=== PATIENT | male | born 1975 | race Caucasian/White ===

== ENCOUNTER 2019-12-31 11:40 | Inpatient (IN) ==
--- NOTE | 2019-12-31 12:18 | Emergency Department Note ---
[facility] [place] Disposition Clinical Impression: Hypokalemia Anemia Qualifiers: Anemia type: unspecified type Qualified Code(s): D64.9 - Anemia, unspecified Disposition: Still a Patient Condition on Discharge: Fair Referrals: Provider,Referral, [Primary Care Provider] - Time of Disposition: 13:03 Medical Decision Making - Medical Records Medical records reviewed: No: I reviewed the patient's medical records. - Zack Inquiry Pt receiving controlled substance: No Vital Signs: 12/31/19 11:45 12/31/19 11:55 Temperature 98.6 F 98.6 F Temperature Source Oral Temporal Artery Scan Pulse Rate [Right Radial] 116 H 116 H Respiratory Rate 18 18 Blood Pressure [Right Arm] 122/68 122/68 Blood Pressure Mean [Right Arm] 86 86 Blood Pressure Source [Right Arm] Automatic Cuff Blood Pressure Position [Right Arm] Sitting 02 Sat by Pulse Oximetry 98 98 Oxygen Delivery Method Room Air Room Air - Lab Data Lab results reviewed: Yes: I reviewed the patient's lab results. Lab Results 12/31/19 12:30: WBC 4.2 L, RBC 2.89 L, Hgb 6.5 L*, Hct 21.5 L*, MCV 75.2 L, MCH 22.6 L, MCHC 30.1 L, RDW 18.1 H, Plt Count 129 L, MPV 11.8 H, Neut % (Auto) 57.5, Lymph % (Auto) 30.8, [place] % (Auto) 7.8, Eos % (Auto) 3.3, Baso % (Auto) 0.5, Neut # (Auto) 2.4, Lymph # (Auto) 1.3, [place] # (Auto) 0.3, Eos # (Auto) 0.1, Baso # (Auto) 0.0 12/31/19 12:30: Sodium 139, Potassium 2.9 L*, Chloride 102, Carbon Dioxide 25, Anion Gap 14.9, BUN 16, Creatinine 0.80, Estimated Creat Clear 140, Estimated GFR 105, Est GFR ( Amer) 127, Glucose 115 H, Calcium 9.0, Total Bilirubin 0.5, AST 58, ALT 28, Alkaline Phosphatase 68, Total Protein 6.4, Albumin 3.5, Globulin 2.9, Albumin/Globulin Ratio 1.2 Result diagrams: 12/31/19 12:30 12/31/19 12:30 Medical Decision Narrative: He was transferred to the ER due to h/h 6.5/21.5, k+=2.9 [facility] [place] HPI - General Stated complaint: legs swelling Time Seen by Provider: 12/31/19 12:18 Mode of Arrival: Ambulatory Source of Information: Patient Limitations: No Limitations Description of Symptoms (Recalled from Triage Doc. by RN): swelling in legs HEENT Symptoms (Recalled from RN notes): No Resp Symptoms (Recalled from RN notes): No Skin Symptoms (Recalled from RN notes): No MS Symptoms (Recalled from RN notes): Yes Functional Status (Recalled from RN notes): leg swelling - History of Present Illness Provider Complaint: He is here with complaints of fatigue and having bilateral lower extremity swelling. He states he has been fatigued for a while now, but over the past 3 to 4 days it has got much worse and he has began to have bilateral leg swelling. The swelling is equal bilaterally. He denies any history of dvt. He does have a history of having similar edema a "few years ago" but he says it went away and he never got a good answer about what caused it. - Related Data Allergies Allergy/AdvReac Type Severity Reaction Status Date / Time hydrocodone [HYDROCODONE] Allergy Unknown ITCHING Unverified 10/08/17 14:01 - Worker's Comp Is this a Worker's Comp case?: No [facility] History - Hepatitis A Screen Drug use history?: Yes High risk sexual behaviors?: No History of sexually transmitted infection?: No Currently employed?: No Childcare worker?: No Do you have indoor plumbing?: Yes Do you have electricity?: Yes Attestation statement:: This patient has been screened for Hepatitis A risk factors. I have reviewed the patient's past medical history: Yes Medical History: Denies:: Cancer, Diabetes Mellitus Type 1, Diabetes Mellitus Type 2, Internal Pacemaker, MRSA Other Surgeries: No: Pacemaker Amputation: No Fractures: Yes - Social History Smoking Status: Current every day smoker Tobacco Type: cigarettes # Packs/Day (cigarettes): 1 Alcohol Intake: never Occupational Status: employed ROS Obtained: Yes All systems reviewed & no additional complaints - Constitutional Constitutional: Denies chills, Denies fever(s) - Eyes Eyes: Denies change in vision - ENT Ears, Nose, Mouth, and Throat: Denies dizziness, Denies otalgia, Denies sore throat - Cardiovascular Cardiovascular: Denies chest pain - Respiratory Respiratory: No chest congestion, No cough - Gastrointestinal Gastrointestingal: Reports: nausea. Denies: abdominal pain, diarrhea, vomiting - Integumentary/Breasts Skin/Breast: Denies rash Physical Exam - General General appearance: alert, in no apparent distress - Head Head exam: atraumatic, normocephalic, normal inspection - Eye Eye exam: Present: normal appearance, PERRL, EOMI - ENT ENT exam: Present: normal exam, normal oropharynx, mucous membranes moist, TM's normal bilaterally, normal external ear exam - Neck Neck exam: Present: normal inspection, full ROM, trachea midline. Absent: meningismus, lymphadenopathy - Chest Chest inspection: Present: normal inspection, symmetric chest wall rise. Absent: tenderness - Respiratory Respiratory exam: Present: normal lung sounds bilaterally. Absent: respiratory distress - Cardiovascular Cardiovascular exam: Present: regular rate, normal rhythm. Absent: JVD - Abdominal Exam Abdominal exam: Present: soft, normal bowel sounds. Absent: distention, tenderness, guarding - Extremities Exam Extremities exam: Present: normal capillary refill, pedal edema. Absent: calf tenderness - Back Exam Back exam: Present: normal inspection. Absent: tenderness - Neurological Exam Neurological exam: Present: alert, oriented X3 - Psychiatric Psychiatric exam: Present: normal affect, normal mood - Skin Skin exam: Present: warm, dry, intact, normal color - Lymphatic Lymphatic Findings: no adenopathy
[2019-12-31 12:37] LABS: Basophils % 0.5 % (0.1-2.0); Eosinophils # 0.1 K/mm3 (0.0-0.4); Eosinophils % 3.3 % (0.1-12.0); Lymphocytes # 1.3 K/mm3 (0.7-4.5); Lymphocytes % 30.8 % (10-50); Mean Corpuscular HGB Conc 30.1 g/dL (31.8-35.4); Mean Corpuscular Volume 75.2 fl (80-94); Mean Platelet Volume 11.8 fl (7.4-10.4); Monocytes # 0.3 K/mm3 (0.1-1.0); Monocytes % 7.8 % (1.7-9.3); Neutrophils # 2.4 K/mm3 (1.8-7.8); Neutrophils % 57.5 % (37.0-80.0); Platelet Count 129 K/mm3 (142-424); Red Blood Count 2.89 M/mm3 (4.60-6.20); Red Cell Distribution Width 18.1 % (11.5-17.5); White Blood Count 4.2 K/mm3 (4.8-10.8)
[2019-12-31 12:41] LABS: Hematocrit 21.5 % (42.0-52.0); Hemoglobin 6.5 g/dL (14.1-18.0)
[2019-12-31 12:44] LABS: Albumin Level 3.5 g/dl (3.5-5.0); Albumin/Globulin Ratio 1.2 (1.1-1.8); Anion Gap 14.9 mEq/L (5-15); Bilirubin,Total 0.5 mg/dl (0.2-1.3); Globulin 2.9 g/dL (1.3-3.2); Total Protein,Serum 6.4 g/dl (6.3-8.2)
[2019-12-31 13:51] LABS: Amylase 40 U/L (30-110)
--- NOTE | 2019-12-31 15:39 | Emergency Department Note ---
ED Disposition Clinical Impression: Hypokalemia Anemia Qualifiers: Anemia type: unspecified type Qualified Code(s): D64.9 - Anemia, unspecified Disposition: Admitted as Observation Condition on Discharge: Good Additional Instructions: Spoke to Dr. Lunsford for admission. Will consult surgery. Referrals: Provider,Referral, [Primary Care Provider] - - Critical Care Critical Care Time: No Attestation: On 12/31/19, the high probability of a clinically significant, sudden or life threatening deterioration of the following system(s) required my full and direct attention, intervention and personal management. The time I documented below is in addition to time spent performing reported procedures but includes the following listed in this critical care notation. Medical Decision Making - Medical Records Medical records reviewed: Yes: I reviewed the patient's medical records. - Zack Inquiry Pt receiving controlled substance: No Vital Signs: 12/31/19 11:45 12/31/19 11:55 12/31/19 13:07 Temperature 98.6 F 98.6 F Temperature Source Oral Temporal Artery Scan Pulse Rate [Right Radial] 116 H 116 H 98 H Respiratory Rate 18 18 Blood Pressure [Right Arm] 122/68 122/68 150/79 H Blood Pressure Mean [Right Arm] 86 86 102 Blood Pressure Source [Right Arm] Automatic Cuff Blood Pressure Position [Right Arm] Sitting 02 Sat by Pulse Oximetry 98 98 100 Oxygen Delivery Method Room Air Room Air 12/31/19 13:17 12/31/19 13:30 12/31/19 14:00 Temperature 98.2 F Temperature Source Oral Pulse Rate [Right Radial] 103 H 83 81 Respiratory Rate 18 Blood Pressure [Right Arm] 153/85 H 152/74 H 152/76 H Blood Pressure Mean [Right Arm] 107 100 101 Blood Pressure Source [Right Arm] Blood Pressure Position [Right Arm] 02 Sat by Pulse Oximetry 98 100 100 Oxygen Delivery Method Room Air 12/31/19 15:00 Temperature Temperature Source Pulse Rate [Right Radial] 90 Respiratory Rate Blood Pressure [Right Arm] 137/76 Blood Pressure Mean [Right Arm] 96 Blood Pressure Source [Right Arm] Blood Pressure Position [Right Arm] 02 Sat by Pulse Oximetry 100 Oxygen Delivery Method - Lab Data Lab results reviewed: Yes: I reviewed the patient's lab results. Lab Results 12/31/19 12:30: WBC 4.2 L, RBC 2.89 L, Hgb 6.5 L*, Hct 21.5 L*, MCV 75.2 L, MCH 22.6 L, MCHC 30.1 L, RDW 18.1 H, Plt Count 129 L, MPV 11.8 H, Neut % (Auto) 57.5, Lymph % (Auto) 30.8, [place] % (Auto) 7.8, Eos % (Auto) 3.3, Baso % (Auto) 0.5, Neut # (Auto) 2.4, Lymph # (Auto) 1.3, [place] # (Auto) 0.3, Eos # (Auto) 0.1, Baso # (Auto) 0.0 12/31/19 12:30: Sodium 139, Potassium 2.9 L*, Chloride 102, Carbon Dioxide 25, Anion Gap 14.9, BUN 16, Creatinine 0.80, Estimated Creat Clear 140, Estimated GFR 105, Est GFR ( Amer) 127, Glucose 115 H, Calcium 9.0, Total Bilirubin 0.5, AST 58, ALT 28, Alkaline Phosphatase 68, Total Protein 6.4, Albumin 3.5, Globulin 2.9, Albumin/Globulin Ratio 1.2 12/31/19 12:30: Troponin I < 0.01, Amylase 40 12/31/19 12:30: Lipase 66 12/31/19 13:15: Blood Type O Positive, Antibody Screen Negative, Crossmatch (AHG) See Detail 12/31/19 14:50: Blood Type Confirm O Positive Result diagrams: 12/31/19 12:30 12/31/19 12:30 Orders (Tests/Meds): ED MEDICATIONS Generic Name Dose Route Start Last Admin Trade Name Freq PRN Reason Stop Dose Admin Sodium Chloride 250 mls @ 25 mls/hr 12/31/19 14:15 Sod Chlor 0.9% 250ml Bag IV 01/01/20 14:14 .Q10H CONOR Discontinued Medications Generic Name Dose Route Start Last Admin Trade Name Freq PRN Reason Stop Dose Admin Sodium Chloride 1,000 mls @ 999 mls/hr 12/31/19 13:45 12/31/19 15:14 Sod Chlor 0.9% 1000ml Bag IV 12/31/19 14:45 999 mls/hr .Q1H1M CONOR Administration Ioversol 75 ml 12/31/19 14:52 12/31/19 14:30 Rad-Optiray 350 150ml Vial IV 12/31/19 14:53 75 ml ONCE ONE Administration Potassium Chloride 60 meq 12/31/19 14:47 Klor-Con 20meq Tablet PO 12/31/19 14:48 ONCE ONE Sodium Chloride 10 ml 12/31/19 14:52 12/31/19 14:30 Rad-Saline Flush 10ml Syringe IV 12/31/19 14:53 10 ml ONCE ONE Administration ORDERS Category Date Time Status Transfuse RBC's [Red Blood Cells] Stat BBK 12/31/19 13:15 Results Type and Screen Stat BBK 12/31/19 13:[address] abdomen pelvis w con Stat Cat Scan 12/31/19 13:38 Taken Occult Blood,Stool Stat Lab 12/31/19 13:38 Ordered Troponin I Q3H Lab 12/31/19 16:45 Ordered Troponin I Q3H Lab 12/31/19 19:45 Ordered Urinalysis and Microscopic Stat Lab 12/31/19 13:37 Ordered - CT Data CT Scan: Abdomen Time Received: 16:00 Preliminary Findings: Abnormal (Patient has hepatosplenomegaly and some inflammation consistent with cirrhosis of the liver and possible portal hypertension.) Medical Decision Narrative: Patient did have some hematic emesis about a year ago but never evaluated or worked up he refused an EGD at that time. He also states that he did not receive a blood transfusion that his blood count was not low enough for 1. General Adult HPI - General Chief complaint: Weakness Stated complaint: legs swelling Time Seen by Provider: 12/31/19 12:18 Mode of Arrival: Ambulatory Limitations: No Limitations Description of Symptoms (Recalled from ER Triage Doc. by RN): pt presents to ed with c/o bilateral lower leg swelling. pt evaluated in [facility] and during lab work it was discovered that patients hgb is 6.5. pt sent to ed for further evaluation. - History of Present Illness HPI narrative: 44-year-old male presents the ED after being seen at the urgent treatment center for bilateral leg swelling. When they did basic labs and the patient was noted that his hemoglobin came back at 6.5 and subsequently he was transferred over here to the emergency department. Patient denies any other symptoms. Patient denies any seen gross blood in his stool. Patient denies any recent fever shakes or chills. Patient denies any cough or shortness of breath. Patient denies any recent any nausea vomiting or diarrhea. - Related Data Allergies Allergy/AdvReac Type Severity Reaction Status Date / Time hydrocodone [HYDROCODONE] Allergy Unknown ITCHING Verified 12/31/19 13:25 [facility] History - Hepatitis A Screen Drug use history?: No High risk sexual behaviors?: No History of sexually transmitted infection?: No Currently employed?: No Childcare worker?: No Do you have indoor plumbing?: Yes Do you have electricity?: Yes Attestation statement:: This patient has been screened for Hepatitis A risk factors. I have reviewed the patient's past medical history: Yes Medical History: Denies:: Cancer, Diabetes Mellitus Type 1, Diabetes Mellitus Type 2, Internal Pacemaker, MRSA Other Surgeries: No: Pacemaker Amputation: No Fractures: Yes - Social History Smoking Status: Current every day smoker Tobacco Type: cigarettes # Packs/Day (cigarettes): 1 Alcohol Intake: never Occupational Status: employed ROS Obtained: Yes All systems reviewed & no additional complaints - Constitutional Constitutional: Reports system reviewed and no additional complaints, except as docu - Eyes Eyes: Reports system reviewed and no additional complaints, except as docu - ENT Ears, Nose, Mouth, and Throat: Reports system reviewed and no additional complaints, except as docu - Cardiovascular Cardiovascular: Reports system reviewed and no additional complaints, except as docu - Respiratory Respiratory: Yes system reviewed and no additional complaints, except as docu - Gastrointestinal Gastrointestingal: Reports: system reviewed and no additional complaints, except as docu - Genitourinary Male Genitourinary: Reports system reviewed and no additional complaints, except as docu Female Genitourinary: Reports system reviewed and no additional complaints, except as docu - Musculoskeletal Musculoskeletal: Reports system reviewed and no additional complaints, except as docu - Integumentary/Breasts Skin/Breast: Reports system reviewed and no additional complaints, except as docu - Neurologic Neurologic: Reports system reviewed and no additional complaints, except as docu - Endocrine Endocrine: Reports system reviewed and no additional complaints, except as docu - Hematologic/Lymphatic Henatologic/Lymphatic: Reports system reviewed and no additional complaints, except as docu Physical Exam - General General appearance: alert, in no apparent distress - Head Head exam: atraumatic - Eye Eye exam: Present: normal appearance - ENT ENT exam: Present: normal exam - Neck Neck exam: Present: normal inspection - Chest Chest inspection: Present: normal inspection - Respiratory Respiratory exam: Present: normal lung sounds bilaterally - Cardiovascular Cardiovascular exam: Present: regular rate - Abdominal Exam Abdominal exam: Present: soft - Back Exam Back exam: Present: normal inspection - Neurological Exam Neurological exam: Present: alert - Psychiatric Psychiatric exam: Present: normal affect - Skin Skin exam: Present: warm - Lymphatic Lymphatic Findings: no adenopathy (Patient refused rectal exam.)
--- NOTE | 2019-12-31 18:01 | Consult Report ---
*Admission Date: 12/31/19 *Reason for consult:: Anemia; possible gastrointestinal hemorrhage *History of present illness: This is a 44-year-old gentleman who presented for evaluation regarding weakness and bilateral lower extremity swelling. He states he has felt "very weak over the past few days". He does not describe "black tarry stool"; however, he does state that his stool was "a little darker last week". No hematemesis. No bright red blood per rectum. Review of Systems - Constitutional Reports fatigue - ENT Denies pain with swallowing - *Cardiovascular Denies chest pain - *Respiratory Denies shortness of breath - *Gastrointestinal Denies abdominal pain - *Genitourinary Denies blood in urine - *Neurologic Denies dizziness - Psychiatric Denies anxiety - Hematologic/Lymphatic Denies easy bruising [facility] History Medical History: Reports:: Congestive Heart Failure, MRSA Denies:: Cancer, Diabetes Mellitus Type 1, Diabetes Mellitus Type 2, Internal Pacemaker *Have you ever received a pneumonia vaccine?: Yes *Have you received a flu vaccine this season?: Yes Laterality Cases: Bilateral: Arthroscopy Knee Other Surgeries: Yes: Colonoscopy. No: Pacemaker Amputation: No Fractures: Yes (bl legs) - *Social History Educational Level: Completed GED/General Educational Development Smoking Status: Current every day smoker Tobacco Type: cigarettes # Packs/Day (cigarettes): 1 Alcohol Intake: current Alcohol Intake Frequency:: a few times a week *Occupational Status:: employed Housing: apartment Household Members: significant other *Travel in the last 8 weeks: None Family Hx:: Cancer, Coronary Artery Disease, Diabetes, Heart Attack, Hypertension, Kidney Disease, Stroke, Substance abuse, Mental illness Meds Home Medications Medication Instructions Recorded Confirmed Type No Known Home Medications 12/31/19 12/31/19 History Allergies Allergy/AdvReac Type Severity Reaction Status Date / Time hydrocodone [HYDROCODONE] Allergy Unknown ITCHING Verified 12/31/19 13:25 Exam Vital signs and Labs for Last 24 Hours: Temp Pulse Resp BP Pulse Ox 98.3 F 99 H 17 129/80 100 12/31/19 17:25 12/31/19 17:25 12/31/19 17:25 12/31/19 17:25 12/31/19 17:25 Laboratory Results - last 24 hr 12/31/19 12:30: WBC 4.2 L, RBC 2.89 L, Hgb 6.5 L*, Hct 21.5 L*, MCV 75.2 L, MCH 22.6 L, MCHC 30.1 L, RDW 18.1 H, Plt Count 129 L, MPV 11.8 H, Neut % (Auto) 57.5, Lymph % (Auto) 30.8, [place] % (Auto) 7.8, Eos % (Auto) 3.3, Baso % (Auto) 0.5, Neut # (Auto) 2.4, Lymph # (Auto) 1.3, [place] # (Auto) 0.3, Eos # (Auto) 0.1, Baso # (Auto) 0.0 12/31/19 12:30: Sodium 139, Potassium 2.9 L*, Chloride 102, Carbon Dioxide 25, Anion Gap 14.9, BUN 16, Creatinine 0.80, Estimated Creat Clear 140, Estimated GFR 105, Est GFR ( Amer) 127, Glucose 115 H, Calcium 9.0, Total Bilirubin 0.5, AST 58, ALT 28, Alkaline Phosphatase 68, Total Protein 6.4, Albumin 3.5, Globulin 2.9, Albumin/Globulin Ratio 1.2 12/31/19 12:30: Troponin I < 0.01, Amylase 40 12/31/19 12:30: Lipase 66 12/31/19 13:15: Blood Type O Positive, Antibody Screen Negative, Crossmatch (AHG) See Detail 12/31/19 14:50: Blood Type Confirm O Positive 12/31/19 16:42: Troponin I < 0.01 I & O for Last 24 hours: Intake & Output 12/29/19 12/30/19 12/31/19 01/01/20 11:59 11:59 11:59 11:59 Intake Total 0 / 0 Balance 0 / 0 Weight 185 lb 183 lb 6 oz - Constitutional no acute distress - *Routine Respiratory Exam Absent: respiratory distress - *Routine Cardiovascular Exam Present: RRR Results - Labs 12/31/19 12:30 12/31/19 12:30 Laboratory Results - last 24 hr 12/31/19 12:30: WBC 4.2 L, RBC 2.89 L, Hgb 6.5 L*, Hct 21.5 L*, MCV 75.2 L, MCH 22.6 L, MCHC 30.1 L, RDW 18.1 H, Plt Count 129 L, MPV 11.8 H, Neut % (Auto) 57.5, Lymph % (Auto) 30.8, [place] % (Auto) 7.8, Eos % (Auto) 3.3, Baso % (Auto) 0.5, Neut # (Auto) 2.4, Lymph # (Auto) 1.3, [place] # (Auto) 0.3, Eos # (Auto) 0.1, Baso # (Auto) 0.0 12/31/19 12:30: Sodium 139, Potassium 2.9 L*, Chloride 102, Carbon Dioxide 25, Anion Gap 14.9, BUN 16, Creatinine 0.80, Estimated Creat Clear 140, Estimated GFR 105, Est GFR ( Amer) 127, Glucose 115 H, Calcium 9.0, Total Bilirubin 0.5, AST 58, ALT 28, Alkaline Phosphatase 68, Total Protein 6.4, Albumin 3.5, Globulin 2.9, Albumin/Globulin Ratio 1.2 12/31/19 12:30: Troponin I < 0.01, Amylase 40 12/31/19 12:30: Lipase 66 12/31/19 13:15: Blood Type O Positive, Antibody Screen Negative, Crossmatch (AHG) See Detail 12/31/19 14:50: Blood Type Confirm O Positive 12/31/19 16:42: Troponin I < 0.01 Assessment and Plan (1) Anemia Current visit: Yes Status: Acute Qualifiers: Anemia type: unspecified type Qualified Code(s): D64.9 - Anemia, unspecified Category: Medical Code(s): D64.9 - Anemia, unspecified Possible secondary to gastrointestinal source. Potential cirrhosis and changes consistent with portal hypertension noted on CT scan. This does increase the likelihood of esophageal varices/variceal bleeding. Continue ongoing medical therapy Transfuse as needed PPI EGD scheduled for tomorrow morning (2) Hypokalemia Current visit: Yes Status: Acute Category: Medical Code(s): E87.6 - Hypokalemia
[2019-12-31 18:06] LABS: Activated Partial Thrombo Time 28.1 seconds (23.6-34.0); INR 1.18 (0.9-1.1); Prothrombin Time 12.2 seconds (9.4-11.8)
--- NOTE | 2019-12-31 18:36 | History & Physical Report ---
*Admission Date: 12/31/19 *Chief complaint: anemia *History of present illness: Alan is a 44-year-old white male who initially presented to the urgent treatment center this afternoon with complaints of progressive weakness and bilateral lower extremity swelling for the past week. Routine labs were obtained at the [facility] and he was found to have a Hgb of 6.5 at which point he was transferred to the ER for additional evaluation. He had no complaints of nausea, vomiting, hematemesis, change in his bowel movements, melena, or hematochezia. No abdominal pain. On evaluation in the ER, his abdominal CT was remarkable for hepatosplenomegaly and possible portal hypertension. He refused a rectal exam. He denies history of liver disease. Admits to drinking 2-3 beers per week. He has been admitted for blood transfusion and surgical consultation for endoscopy. [facility] History Medical History: Reports:: MRSA Denies:: Cancer, Diabetes Mellitus Type 1, Diabetes Mellitus Type 2, Internal Pacemaker *Have you ever received a pneumonia vaccine?: Yes *Have you received a flu vaccine this season?: Yes Other Medical History: Denies: Liver Disease Comment:: States he was hospitalized for a MRSA infection last year and describes what sounds like sepsis with acute renal failure. Laterality Cases: Bilateral: Other (Bilateral tib-fib fracture) Other Surgeries: Yes: Colonoscopy. No: Pacemaker Amputation: No Fractures: Yes (bl legs) - *Social History Educational Level: Completed GED/General Educational Development Smoking Status: Current every day smoker Tobacco Type: cigarettes # Packs/Day (cigarettes): 1 Alcohol Intake: current (2-3 beers per week) Alcohol Intake Frequency:: a few times a week Substance Use Type: former substance user *Occupational Status:: employed (Self-employed) Housing: apartment Household Members: significant other *Travel in the last 8 weeks: None Comment: He denies illicit drug use but note ER visits a few years ago for he roin withdrawal on at least 2 occasions Family Hx:: Cancer, Coronary Artery Disease, Diabetes, Heart Attack, Hypertension, Kidney Disease, Stroke, Substance abuse, Mental illness Comment: Mother with lung cancer and father with colon cancer Review of Systems - Constitutional Reports anorexia, Denies chills, Denies fever(s), Denies weight loss - Eyes Reports change in vision - ENT Reports headache(s), Denies difficulty swallowing - *Cardiovascular Reports leg swelling, Denies chest pain, Denies shortness of breath - *Respiratory Denies chest congestion, Denies cough - *Gastrointestinal Reports other (See HPI) - *Genitourinary Denies difficulty urinating - *Musculoskeletal Denies joint pain - Integumentary/Breasts Denies change in skin color - *Neurologic Denies confusion, Denies seizure-like activity, Denies dizziness - Psychiatric Denies depression, Denies mood swings - Endocrine Denies cold intolerance - Hematologic/Lymphatic Denies easy bruising - Allergic/Immunologic Denies seasonal runny nose Meds Home Medications Medication Instructions Recorded Confirmed Type No Known Home Medications 12/31/19 12/31/19 History Allergies Allergy/AdvReac Type Severity Reaction Status Date / Time hydrocodone [HYDROCODONE] Allergy Unknown ITCHING Verified 12/31/19 13:25 Exam Vital signs and Labs for Last 24 Hours: Temp Pulse Resp BP Pulse Ox 98.2 F 92 H 16 135/75 100 12/31/19 17:40 12/31/19 17:40 12/31/19 17:40 12/31/19 17:40 12/31/19 17:40 Laboratory Results - last 24 hr 12/31/19 12:30: WBC 4.2 L, RBC 2.89 L, Hgb 6.5 L*, Hct 21.5 L*, MCV 75.2 L, MCH 22.6 L, MCHC 30.1 L, RDW 18.1 H, Plt Count 129 L, MPV 11.8 H, Neut % (Auto) 57.5, Lymph % (Auto) 30.8, [place] % (Auto) 7.8, Eos % (Auto) 3.3, Baso % (Auto) 0.5, Neut # (Auto) 2.4, Lymph # (Auto) 1.3, [place] # (Auto) 0.3, Eos # (Auto) 0.1, Baso # (Auto) 0.0 12/31/19 12:30: Sodium 139, Potassium 2.9 L*, Chloride 102, Carbon Dioxide 25, Anion Gap 14.9, BUN 16, Creatinine 0.80, Estimated Creat Clear 140, Estimated GFR 105, Est GFR ( Amer) 127, Glucose 115 H, Calcium 9.0, Total Bilirubin 0.5, AST 58, ALT 28, Alkaline Phosphatase 68, Total Protein 6.4, Albumin 3.5, Globulin 2.9, Albumin/Globulin Ratio 1.2 12/31/19 12:30: Troponin I < 0.01, Amylase 40 12/31/19 12:30: Lipase 66 12/31/19 13:15: Blood Type O Positive, Antibody Screen Negative, Crossmatch (AHG) See Detail 12/31/19 14:50: Blood Type Confirm O Positive 12/31/19 16:42: Troponin I < 0.01 12/31/19 17:39: PT 12.2 H, INR 1.18 H, APTT 28.1 I & O for Last 24 hours: Intake & Output 12/29/19 12/30/19 12/31/19 01/01/20 11:59 11:59 11:59 11:59 Intake Total 0 / 0 Balance 0 / 0 Weight 185 lb 183 lb 6 oz Narrative: He is lying comfortably in bed and appears in no acute distress. He is alert and oriented and cooperative with examination. HEENT shows a cream to be atraumatic and normocephalic. Sclera and conjunctive are clear. Nares patent. Oropharynx is unremarkable. Neck is supple with no masses or thyromegaly. Lungs are clear to auscultation. Heart is regular with no ectopy. Abdomen is soft and nondistended with no unusual masses. There is mild epigastric tenderness. No rebound or guarding. Extremities show trace pretibial edema bilaterally. He has multiple tattoos. Assessment and Plan (1) Anemia Current visit: Yes Status: Acute Qualifiers: Anemia type: unspecified type Qualified Code(s): D64.9 - Anemia, unspecified Category: Medical Code(s): D64.9 - Anemia, unspecified (2) Hypokalemia Current visit: Yes Status: Acute Category: Medical Code(s): E87.6 - H ypokalemia (3) Cirrhosis Current visit: Yes Status: Suspected Category: Medical Code(s): K74.60 - Unspecified cirrhosis of liver (4) Tobacco abuse Current visit: Yes Status: Acute Category: Medical Code(s): Z72.0 - Tobacco use (5) COPD (chronic obstructive pulmonary disease) Current visit: Yes Status: Acute Category: Medical Code(s): J44.9 - Chronic obstructive pulmonary disease, unspecified - Assessment and plan all Dx Assessment and Plan for all problems:: 44-year-old white male admitted with anemia and suspected upper GI bleeding likely related to cirrhosis with portal hypertension and varices. He is being transfused initially with 2 units of packed red cells. Dr. Ashley has been consulted for surgical evaluation and probable EGD. Additional work-up and treatment will be as indicated by his hospital course.
[2019-12-31 20:37] LABS: Microscopic, Urine URINE MICROSCOPIC (MICROSCOPIC)
[2019-12-31 21:28] LABS: Appearance,Urine CLEAR (Clear); Bilirubin,Urine Negative (Negative); Blood, Urine Negative (Negative); Color,Urine YELLOW (Yellow); Glucose,Urine (UA) Negative (Negative); Ketones,Urine Negative (Negative); Leukocyte Esterase,Urine Negative (Negative); Protein,Urine Negative (Negative); Specific Gravity, Urine 1.015 (1.005-1.030)
[2019-12-31 21:42] LABS: Bacteria,Urine Trace /lpf; Squamous Epithelial Cell,Urine Occasional #/hpf (0-5); WBC,Urine Occasional #/hpf (0-3)
[2020-01-01 00:01] LABS: Hematocrit 24.5 % (42.0-52.0)
[2020-01-01 00:07] LABS: Hemoglobin 7.4 g/dL (14.1-18.0)
[2020-01-01 06:57] LABS: Basophils % 0.6 % (0.1-2.0); Eosinophils # 0.1 K/mm3 (0.0-0.4); Eosinophils % 3.3 % (0.1-12.0); Hematocrit 25.2 % (42.0-52.0); Lymphocytes # 0.7 K/mm3 (0.7-4.5); Lymphocytes % 19.9 % (10-50); Mean Corpuscular HGB Conc 30.2 g/dL (31.8-35.4); Mean Corpuscular Volume 78.3 fl (80-94); Mean Platelet Volume 10.6 fl (7.4-10.4); Monocytes # 0.3 K/mm3 (0.1-1.0); Monocytes % 8.5 % (1.7-9.3); Neutrophils # 2.4 K/mm3 (1.8-7.8); Neutrophils % 67.6 % (37.0-80.0); Platelet Count 103 K/mm3 (142-424); Red Blood Count 3.22 M/mm3 (4.60-6.20); Red Cell Distribution Width 18.3 % (11.5-17.5); White Blood Count 3.6 K/mm3 (4.8-10.8)
[2020-01-01 07:12] LABS: Hemoglobin 7.6 g/dL (14.1-18.0)
--- NOTE | 2020-01-01 07:14 | Progress Note ---
Subjective Patient reports: no new complaints (2 units PRBCs tranfused yesterday evening) Exam Vital signs and Labs for Last 24 Hours: Temp Pulse Resp BP Pulse Ox 97.8 F 81 16 119/73 97 01/01/20 04:00 01/01/20 04:00 01/01/20 04:00 01/01/20 04:00 01/01/20 04:00 Laboratory Results - last 24 hr 12/31/19 12:30: WBC 4.2 L, RBC 2.89 L, Hgb 6.5 L*, Hct 21.5 L*, MCV 75.2 L, MCH 22.6 L, MCHC 30.1 L, RDW 18.1 H, Plt Count 129 L, MPV 11.8 H, Neut % (Auto) 57.5, Lymph % (Auto) 30.8, [place] % (Auto) 7.8, Eos % (Auto) 3.3, Baso % (Auto) 0.5, Neut # (Auto) 2.4, Lymph # (Auto) 1.3, [place] # (Auto) 0.3, Eos # (Auto) 0.1, Baso # (Auto) 0.0 12/31/19 12:30: Sodium 139, Potassium 2.9 L*, Chloride 102, Carbon Dioxide 25, Anion Gap 14.9, BUN 16, Creatinine 0.80, Estimated Creat Clear 140, Estimated GFR 105, Est GFR ( Amer) 127, Glucose 115 H, Calcium 9.0, Total Bilirubin 0.5, AST 58, ALT 28, Alkaline Phosphatase 68, Total Protein 6.4, Albumin 3.5, Globulin 2.9, Albumin/Globulin Ratio 1.2 12/31/19 12:30: Troponin I < 0.01, Amylase 40 12/31/19 12:30: Lipase 66 12/31/19 13:15: Blood Type O Positive, Antibody Screen Negative, Crossmatch (G) See Detail 12/31/19 14:50: Blood Type Confirm O Positive 12/31/19 16:42: Troponin I < 0.01 12/31/19 17:39: PT 12.2 H, INR 1.18 H, APTT 28.1 12/31/19 20:00: Troponin I < 0.01 12/31/19 20:05: Urine Color Yellow, Urine Appearance Clear, Urine pH 8.0, Ur Specific [place] 1.015, Urine Protein Negative, Urine Glucose (UA) Negative, Urine Ketones Negative, Urine Blood Negative, Urine Nitrate Negative, Urine Bilirubin Negative, Urine Urobilinogen 1.0, Ur Leukocyte Esterase Negative, Urine WBC Occasional, Ur Squamous Epith Cells Occasional, Urine Bacteria Trace 12/31/19 23:38: Hgb 7.4 L*, Hct 24.5 L 01/01/20 05:53: WBC 3.6 L, RBC 3.22 L, Hgb 7.6 L*, Hct 25.2 L, MCV 78.3 L, MCH 23.7 L, MCHC 30.2 L, RDW 18.3 H, Plt Count 103 L, MPV 10.6 H, Neut % (Auto) 67.6, Lymph % (Auto) 19.9, [place] % (Auto) 8.5, Eos % (Auto) 3.3, Baso % (Auto) 0.6, Neut # (Auto) 2.4, Lymph # (Auto) 0.7, [place] # (Auto) 0.3, Eos # (Auto) 0.1, Baso # (Auto) 0.0 I & O for Last 24 hours: Intake & Output 12/29/19 12/30/19 12/31/19 01/01/20 11:59 11:59 11:59 11:59 Intake Total 510 / 510 Output Total 700 / 700 Balance -190 / -190 Weight 185 lb 184 lb 9 oz - Constitutional no acute distress - *Routine Respiratory Exam Absent: respiratory distress - *Routine Cardiovascular Exam Present: [facility]RR Progress Note: A&P (1) Anemia Status: Acute Assessment and plan: EGD this AM Current Visit: Yes (2) Hypokalemia Status: Acute Current Visit: Yes (3) Cirrhosis Status: Suspected Current Visit: Yes (4) Tobacco abuse Status: Acute Current Visit: Yes (5) COPD (chronic obstructive pulmonary disease) Status: Acute Current Visit: Yes
[2020-01-01 07:15] LABS: Anion Gap 9.3 mEq/L (5-15); Calcium 8.3 mg/dl (8.4-10.2)
--- NOTE | 2020-01-01 07:41 | Progress Note ---
[facility] Anesthesia Checklist - Structural Data Admitted From: Inpatient Planned Operative Procedure/s: egd Consent for Planned Operative Procedure(s) Verified: Yes - Airway Assessment C-Spine Mobility Assessed: Yes TMJ Mobility Assessed: Yes Dentition: Edentulous - Neurological Assessment Level of Consciousness: Awake, Alert, Appropriate - Anesthesia Plan Anesthesia Risk discussed: Yes Anesthesia Plan: Verified ASA Class: III Anesthesia Type: MAC [facility] History I have reviewed the patient's past medical history: Yes Medical History: Reports:: Congestive Heart Failure, MRSA Denies:: Cancer, Diabetes Mellitus Type 1, Diabetes Mellitus Type 2, Internal Pacemaker *Have you ever received a pneumonia vaccine?: Yes *Have you received a flu vaccine this season?: Yes Other Medical History: Denies: Liver Disease Anesthesia experience/problems:: none Laterality Cases: Bilateral: Arthroscopy Knee, Other (Bilateral tib-fib fracture) Other Surgeries: Yes: Colonoscopy. No: Pacemaker Amputation: No Fractures: Yes (bl legs) - *Social History Educational Level: Completed GED/General Educational Development Smoking Status: Current every day smoker Tobacco Type: cigarettes # Packs/Day (cigarettes): 1 Alcohol Intake: current (2-3 beers per week) Alcohol Intake Frequency:: a few times a week Substance Use Type: former substance user *Occupational Status:: employed (Self-employed) Housing: apartment Household Members: significant other *Travel in the last 8 weeks: None Family Hx:: Cancer, Coronary Artery Disease, Diabetes, Heart Attack, Hypertension, Kidney Disease, Stroke, Substance abuse, Mental illness
--- NOTE | 2020-01-01 07:47 | Procedure Note ---
- Procedure: Date: 01/01/20 Procedure Performed:: Esophagogastroduodenoscopy with biopsy Indications:: Anemia Performing Provider:: Harry Ashley MD Referring Provider:: Dr. Lunsford Sedation:: Monitored anesthesia care Procedure:: After informed consent was obtained the patient was taken to the endoscopy suite. Sedation ensued after the patient was transferred to the left lateral decubitus position. Pulse, blood pressure, and oxygen saturation were monitored throughout the procedure. The endoscope was advanced beyond the duodenal bulb. Retroflexion within the gastric lumen was accomplished. The gastroscope was carefully removed and the patient was transferred to recovery in stable condition. Please see "findings" and "specimens" below for detail. Findings:: Significant esophageal varices with no sign of active hemorrhage/recent hemorrhage Mild streaking gastritis No obvious ulceration No active bleeding Specimens:: Antral biopsy Recommendations:: Continue medical treatment for esophageal varices. May require banding and/or TIPS if he develops recurrent/significant bleeding. Complications:: No immediate Estimated blood obtained (mL): 1
--- NOTE | 2020-01-01 08:07 | Pharmacy Consult Notes ---
[facility] Pharmacy VTE Monitoring - Patient Demographics Admission date: 01/01/20 Report Date: 01/01/20 Time: 08:07 Allergies/Adverse Reactions: Patient Allergies hydrocodone [HYDROCODONE] Allergy (Unknown, Verified 12/31/19 13:25) ITCHING Height: 1.8 m Weight: 83.716 kg Patient Problems: Current Active Problems Anemia (Acute) Hypokalemia (Acute) Tobacco abuse (Acute) COPD (chronic obstructive pulmonary disease) (Acute) - VTE Risk Labs: VTE Related Lab Results Hgb 7.6 g/dL (14.1-18.0) L* 01/01/20 05:53 Hct 25.2 % (42.0-52.0) L 01/01/20 05:53 Plt Count 103 K/mm3 (142-424) L 01/01/20 05:53 PT 12.2 seconds (9.4-11.8) H 12/31/19 17:39 INR 1.18 (0.9-1.1) H 12/31/19 17:39 APTT 28.1 seconds (23.6-34.0) 12/31/19 17:39 BUN 14 mg/dl (9-20) 01/01/20 05:53 Creatinine 0.70 mg/dl (0.66-1.25) 01/01/20 05:53 Estimated Creat Clear 159 mL/min (50-200) 01/01/20 05:53 Was VTE Risk Assessment Performed: Yes VTE Score: 3 VTE Risk Level: Low Risk Clinical Trial Participant: No - Prophylaxis VTE Prophylaxis Ordered?: Yes Types of VTE Prophylaxis: TEDS Knee High
--- NOTE | 2020-01-01 08:34 | Progress Note ---
Internal Medicine - PN: Subj *Date: 01/01/20 *Time: 08:33 Interval history: He just returned from his EGD and is hungry. Spoke with Dr. Rocha regarding results of his EGD. Apparently showed no active bleeding but has moderate varices. He denies abdominal pain or nausea. After 2 units of blood his hemoglobin is only up to 7.6. Exam Vital signs and Labs for Last 24 Hours: Temp Pulse Resp BP Pulse Ox 97.8 F 79 18 125/72 99 01/01/20 07:59 01/01/20 07:59 01/01/20 07:59 01/01/20 07:59 01/01/20 07:59 Laboratory Results - last 24 hr 12/31/19 12:30: WBC 4.2 L, RBC 2.89 L, Hgb 6.5 L*, Hct 21.5 L*, MCV 75.2 L, MCH 22.6 L, MCHC 30.1 L, RDW 18.1 H, Plt Count 129 L, MPV 11.8 H, Neut % (Auto) 57.5, Lymph % (Auto) 30.8, [place] % (Auto) 7.8, Eos % (Auto) 3.3, Baso % (Auto) 0.5, Neut # (Auto) 2.4, Lymph # (Auto) 1.3, Bertie # (Auto) 0.3, Eos # (Auto) 0.1, Baso # (Auto) 0.0 12/31/19 12:30: Sodium 139, Potassium 2.9 L*, Chloride 102, Carbon Dioxide 25, Anion Gap 14.9, BUN 16, Creatinine 0.80, Estimated Creat Clear 140, Estimated GFR 105, Est GFR ( Amer) 127, Glucose 115 H, Calcium 9.0, Total Bilirubin 0.5, AST 58, ALT 28, Alkaline Phosphatase 68, Total Protein 6.4, Albumin 3.5, Globulin 2.9, Albumin/Globulin Ratio 1.2 12/31/19 12:30: Troponin I < 0.01, Amylase 40 12/31/19 12:30: Lipase 66 12/31/19 13:15: Blood Type O Positive, Antibody Screen Negative, Crossmatch (AHG) See Detail 12/31/19 14:50: Blood Type Confirm O Positive 12/31/19 16:42: Troponin I < 0.01 12/31/19 17:39: PT 12.2 H, INR 1.18 H, APTT 28.1 12/31/19 20:00: Troponin I < 0.01 12/31/19 20:05: Urine Color Yellow, Urine Appearance Clear, Urine pH 8.0, Ur Specific [place] 1.015, Urine Protein Negative, Urine Glucose (UA) Negative, Urine Ketones Negative, Urine Blood Negative, Urine Nitrate Negative, Urine Bilirubin Negative, Urine Urobilinogen 1.0, Ur Leukocyte Esterase Negative, Urine WBC Occasional, Ur Squamous Epith Cells Occasional, Urine Bacteria Trace 12/31/19 23:38: Hgb 7.4 L*, Hct 24.5 L 01/01/20 05:53: WBC 3.6 L, RBC 3.22 L, Hgb 7.6 L*, Hct 25.2 L, MCV 78.3 L, MCH 23.7 L, MCHC 30.2 L, RDW 18.3 H, Plt Count 103 L, MPV 10.6 H, Neut % (Auto) 67.6, Lymph % (Auto) 19.9, Bertie % (Auto) 8.5, Eos % (Auto) 3.3, Baso % (Auto) 0.6, Neut # (Auto) 2.4, Lymph # (Auto) 0.7, [place] # (Auto) 0.3, Eos # (Auto) 0.1, Baso # (Auto) 0.0 01/01/20 05:53: Sodium 138, Potassium 3.3 L, Chloride 107, Carbon Dioxide 25, Anion Gap 9.3, BUN 14, Creatinine 0.70, Estimated Creat Clear 159, Estimated GFR 123, Est GFR ( Amer) 148, Glucose 78 D, Calcium 8.3 L I & O for Last 24 hours: Intake & Output 12/29/19 12/30/19 12/31/19 01/01/20 11:59 11:59 11:59 11:59 Intake Total 510 / 510 Output Total 700 / 700 Balance -190 / -190 Weight 185 lb 184 lb 9 oz Narrative: Alert and oriented. Appears in no distress. Lungs are clear. Abdomen is soft and nondistended with no tenderness. Assessment and Plan (1) Upper GI bleeding Current visit: Yes Status: Acute Category: Medical Code(s): K92.2 - Gastrointestinal hemorrhage, unspecified (2) Esophageal varices Current visit: Yes Status: Acute Category: Medical Code(s): I85.00 - Esophageal varices without bleeding (3) Anemia Current visit: Yes Status: Acute Qualifiers: Anemia type: unspecified type Qualified Code(s): D64.9 - Anemia, unspecified Category: Medical Code(s): D64.9 - Anemia, unspecified (4) Hypokalemia Current visit: Yes Status: Acute Category: Medical Code(s): E87.6 - Hypokalemia (5) Cirrhosis Current visit: Yes Status: Suspected Category: Medical Code(s): K74.60 - Unspecified cirrhosis of liver (6) Tobacco abuse Current visit: Yes Status: Acute Category: Medical Code(s): Z72.0 - Tobacco use (7) COPD (chronic obstructive pulmonary disease) Current visit: Yes Status: Acute Category: Medical Code(s): J44.9 - Chronic obstructive pulmonary disease, unspecified - Assessment and plan all Dx Assessment and Plan for all problems:: We will transfuse 2 additional units of blood. Initiate medical treatment with nadolol. Continue to replace potassium. Advance diet. Possible discharge later today with plans for outpatient GI consultation
[2020-01-01 16:12] VITALS: BP 135/70
[2020-01-01 16:13] LABS: Hematocrit 33.7 % (42.0-52.0)
--- NOTE | 2020-01-03 22:07 | Discharge Summary ---
General - General Admission date:: 12/31/19 Discharge date: 01/01/20 HPI HPI: Alan is a 44-year-old white male who initially presented to the urgent treatment center with complaints of progressive weakness and bilateral lower extremity swelling for the past week. Routine labs were obtained at the [facility] and he was found to have a Hgb of 6.5 at which point he was transferred to the ER for additional evaluation. He had no complaints of nausea, vomiting, hematemesis, change in his bowel movements, melena, or hematochezia. No abdominal pain. On evaluation in the ER, his abdominal CT was remarkable for hepatosplenomegaly and possible portal hypertension. He refused a rectal exam. He denies history of liver disease. Admitted to drinking 2-3 beers per week. He was admitted for blood transfusion and surgical consultation for endoscopy. Hospital Course Hospital Course: The patient had an abdominal/pelvic CT which showed cirrhosis with portal hypertension and splenomegaly as well as abdominal varices. There was some thickening of the gallbladder wall. There was also constipation. He was admitted and surgery was consulted. He was transfused due to his anemia. He did admit that his stool has been darker over the week prior to admission. Dr. Ashley started him on a PPI and scheduled an EGD. The patient had an EGD which showed significant esophageal varices with no sign of active hemorrhage. There was mild streaking gastritis but no obvious ulceration or active bleeding. Dr. Ashley felt medical treatment for the esophageal varices was warranted. He felt they may require banding if he develops recurrent bleeding. After 2 units of blood, the patient's hemoglobin was only up to 7.6. His potassium was also low. He was given 2 units additional units of blood and his potassium was replaced. He felt well after his EGD and his diet was advanced. His H&H improved to [address] Lunsford felt he was stable to be discharged and will likely need an outpatient GI appointment. Objective Vital signs: Temp Pulse Resp BP Pulse Ox 98.0 F 79 18 135/70 100 01/01/20 16:00 01/01/20 16:00 01/01/20 16:00 01/01/20 16:00 01/01/20 16:00 Narrative: Alert and oriented. Appears in no distress. Lungs are clear. Abdomen is soft and nondistended with no tenderness. DS: Diagnosis - Discharge Diagnosis (1) Upper GI bleeding Status: Acute (2) Esophageal varices Status: Acute (3) Anemia Status: Acute (4) Hypokalemia Status: Acute (5) Cirrhosis Status: Suspected (6) Tobacco abuse Status: Acute (7) COPD (chronic obstructive pulmonary disease) Status: Acute Discharge Plan - Patient Discharge Instructions ACTIVITY: Continue current activity DIET: continue same diet Patient Instructions: Anemia: How Food and Vitamins Can Help - Follow up Plan Follow up with: Ke Wilson MD [Staff Physician] - 01/18/20 Pablo Lunsford MD [Staff Physician] - 01/07/20 Disposition: Home, Self-Detention Medications: Home Medications Medication Instructions Recorded Confirmed Type nadoloL [Nadolol] 40 mg PO DAILY #30 tab 01/01/20 Rx Prescriptions/Medication Reconciliation: New nadoloL [Nadolol] 40 mg PO DAILY #30 tab - Problem Reconciliation Problems Reviewed?: Yes
--- NOTE | 2020-01-08 08:01 | Electrocardiograph Report ---
APPROVED REPORT Exam: Resting ECG HR:80 bpm ECG Measurements Heart Rate 80 AXES [place] 168 P 79 QRSd 74 QRS 26 QT 406 T57 QTc 468 <Conclusion> Normal sinus rhythm Normal ECG Electronically signed by : James Noyola, 01/08/2020 08:01:03
== END 2020-01-01 17:10 | disposition home or self-care (01) | DRG 369 ==
LOC: 2ND 11:40 → UTC 11:40 → ER 11:40 → OBSVTOIN 16:07 → 2ND 16:08
PROVIDERS: ADMIT Family Medicine; ATTEND Family Medicine
CPT/HCPCS: 36415; 74177; 80048; 80053; 81001; 82150; 83690; 84484; 85014; 85018; 85025; 85610; 85730; 86850; 93005; 96365; 99284; P9016; Q9967